=== PATIENT | female | born 1990 | race Two or more races ===

== ENCOUNTER 2017-05-07 14:56 | Emergency (ER) | payer SELFPAY ==
[~2017-05-07] VITALS: Ht 172.7 cm; Wt 70.0 kg
[2017-05-07] MEDS ORDERED: KETOROLAC 60MG/2ML VIAL IM ONE (15:45)
[2017-05-07 18:09] VITALS: BP 134/76
== END 2017-05-07 18:11 | disposition home or self-care (01) ==
LOC: ER 15:10
DX: S46.912A Strain of unspecified muscle, fascia and tendon at shoulder and upper arm level, left arm, initial encounter (principal); S56.912A Strain of unspecified muscles, fascia and tendons at forearm level, left arm, initial encounter; M54.5 Low back pain; V43.52XA Car driver injured in collision with other type car in traffic accident, initial encounter; Y93.89 Activity, other specified; Y92.488 Other paved roadways as the place of occurrence of the external cause
CPT/HCPCS: 72100; 72125; 81025; 96372; 99284; J1885; Z7610